=== PATIENT | male | born 1950 | race Caucasian/White ===

== ENCOUNTER 2018-02-06 09:05 | Inpatient (IN) | payer MEDICARE, OTHER ==
[2018-01-26 09:18] LABS: ABSOLUTE BASOPHILS 0.1 thou/uL (0.0-0.2); ABSOLUTE EOSINOPHILS 0.5 thou/uL (0.0-0.7); ABSOLUTE LYMPHOCYTES 1.8 thou/uL (0.8-5.3); ABSOLUTE MONOCYTES 0.5 thou/uL (0.0-1.2); BASOPHILS 1.1 %; EOSINOPHILS 6.3 %; HEMATOCRIT 46.4 % (42.0-52.0); HEMOGLOBIN 15.9 gm/dL (14.0-18.0); LYMPHOCYTES 23.2 %; MCH 29.8 pg (26.0-34.0); MCHC 34.3 g/dL (28.0-37.0); MCV 86.7 fL (80.0-100.0); NUCLEATED RBCS 0 /100WBC; PLATELET COUNT* 209 thou/uL (150-400); POLYS 63.4 %; RBC 5.35 mil/uL (4.50-6.00); RDW-CV 14.1 % (10.5-14.5)
[2018-01-26 09:46] LABS: APTT 28.9 Seconds (25.0-31.3); PROTIME 9.8 Seconds (9.20-11.50)
[2018-01-26 10:21] LABS: ESR (SEDRATE) 15 mm/hr (0-20)
[2018-01-26 11:07] LABS: ALBUMIN 3.7 g/dL (3.4-5.0); CALCIUM 8.5 mg/dL (8.5-10.1); CREATININE 0.9 mg/dL (0.6-1.3); TOTAL BILIRUBIN 0.4 mg/dL (<0.1-1.0); TOTAL PROTEIN 7.5 g/dL (6.4-8.2)
--- NOTE | 2018-01-26 17:04 | EKG ---
[place] [address] ELECTROCARDIOGRAM REPORT Name: TATIANA TEE Jeovany Room: [facility]#: [id number] Admission: Attend Phys: Ar Marcelo Discharge: Date of : 54 Report #: [id number] THIS REPORT FOR: //name// [facility] Test Date: 2018-01-26 Test Time: 09:23:50 Pat Name: TATIANA TEE Department: Room: Gender: Male [employer]: : 1950 Requested By: Marco A Kong Order Number: [id number] Reading MD: Denny Claudio Measurements Intervals [place] Rate: P: [place]: QRS: QRSD: T: QT: QTc: Interpretive Statements Sinus bradycardia Completely right bundle-branch block 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
[~2018-02-06] VITALS: Ht 175.3 cm; Wt 90.7 kg
[2018-02-06 10:30] VITALS: BP 142/86
[2018-02-06] MEDS ORDERED: [UNRECOGNIZED DRUG - OTHER] PO (10:34)
[2018-02-06] MEDS ORDERED: BEET PO (10:35)
[2018-02-06] MEDS ORDERED: MULTIVITAMINS1 EAC7 PO (10:36)
[2018-02-06 14:35] VITALS: BP 115/79
[2018-02-06 14:56] VITALS: BP 115/79
[2018-02-06 15:45] VITALS: BP 124/77
[2018-02-06 22:00] VITALS: BP 131/91
[2018-02-06 23:45] VITALS: BP 125/76
[2018-02-07 04:00] VITALS: BP 131/66
[2018-02-07 04:45] LABS: HEMATOCRIT 37.5 % (42.0-52.0); HEMOGLOBIN 12.5 gm/dL (14.0-18.0)
[2018-02-07 08:58] VITALS: BP 144/83
[2018-02-07 15:21] VITALS: BP 144/83
[2018-02-07 16:24] VITALS: BP 139/88
[2018-02-07] MEDS ORDERED: NEURONTIN 300300 M1 PO (16:41)
[2018-02-07] MEDS ORDERED: ELIQUIS2.5 MG PO (16:43)
[2018-02-07] MEDS ORDERED: OXYCODONE HCL 55 MG PO (16:44)
[2018-02-07 16:57] VITALS: BP 139/88
[2018-02-07] MEDS ORDERED: ASPIRIN325 PO (17:50)
--- NOTE | 2018-02-10 07:16 | OP ---
[address] [address] OPERATIVE REPORT Name: TATIANA TEE Room: [address]#: [id number] Admission: 02/06/18 Attend Phys: Ar Marcelo Discharge: 02/07/18 Date of : 54 Report #: [id number] THIS REPORT FOR: //name// CC: Physician staff Marco A Mistry DATE OF SERVICE: 02/06/2018 PREOPERATIVE DIAGNOSIS: Advanced degenerative joint disease of the right knee. POSTOPERATIVE DIAGNOSIS: Advanced degenerative joint disease of the right knee. PROCEDURE: Right total knee arthroplasty. SURGEON: Marco A Kong DO [employer]ENE [employer] L[employer]ING DESIGN LECTURER: Adolfo Brennan DO. ANESTHESIA: General LMA with anterior adductor block. IMPLANTS: A [employer]omet Vanguard total knee system with a size 67.5 cruciate retained right femoral component, a 75 mm fixed cruciate tibial plate, a 10 mm anterior stabilized tibial bearing, one bag of Palacos cement, 1 gram of vancomycin topical, 1 gram of TXA IV preop. ESTIMATED BLOOD LOSS: 225 mL. ANTIBIOTICS: Ancef 2 grams IVPB 30 minutes prior to incision. SPECIMENS: None. INDICATIONS: The patient is a 67-year-old male who has had longstanding severe degenerative joint disease with intractable pain to the right knee. Pain is both medial and lateral to the knee. He has decreased range of motion secondary to discomfort. He walks with antalgic gait. X-rays show [id number] apposition of the medial joint line as well as osteochondral defects lateral femoral condyle. He is here today for elective surgical intervention. Risks and complications were discussed in detail with the patient and family who was present. These include but are not limited to neurovascular damage, infection, fracture, need for further surgery, failure of the prosthesis, recall of prosthesis, allergy developed at the prosthesis, continued pain, decreased range of motion, need for further surgery, deep vein thrombosis, pulmonary emboli, myocardial infarction, rhabdomyolysis, blood loss, blood transfusions and even . Signed informed consent has been attached to chart, may refer to and his knee is marked preoperatively [place] [address] OPERATIVE REPORT Name: TATIANA TEE Room: [address]#: [id number] Admission: 02/06/18 Attend Phys: Ar Marcelo Discharge: 02/07/18 Date of : 54 Report #: [id number] DESCRIPTION OF PROCEDURE: The patient was taken to the operating suite and placed on the operating table in supine position. Following general LMA anesthetic, the right leg was designated appropriate surgical site. The tourniquet was applied to the proximal aspect of the right thigh and was utilized just during cementing for 17 minutes or less. A midline incision was made after timeout technique was verified appropriate surgical site, procedure, concerns and allergies. Incision was carried through skin and subcutaneous tissue down to the extensor mechanism. A median parapatellar incision was then performed. The knee was everted to 120 degrees. All osteophytes removed from tibia and the femur. The distal femur was then drilled. The intramedullary guide was placed with the cutting block in place. Intramedullary guide was set at 12 mm from the most distal aspect of the femur due to extension lag of roughly 4 degrees preop and was also set at 4 degrees posterior slope and 5 degrees valgus. The distal femur cutting block was pinned into place. Intramedullary rell was removed. The distal femur was resected. Attention was then turned to the tibia with the external tibial guide aligned in all planes, pinned into place at 8 mm from the highest point on the tibia, proximal tibia was resected. The bony wafer was removed as well as all meniscal structures. The knee was placed in full extension. A 10 mm extension block was then placed in the knee in order to determine if adequate resection was performed and it was. Therefore, all pins were removed. The femur was then measured anterior to posterior, the appropriate size 67.5 guide was then impacted firmly in place with three 3-degree external rotation. Anterior and posterior condylar cuts were made followed by anterior and posterior chamfer cuts. The cutting guide was removed. All bony wafers were removed. Attention turned back to the tibia. The tibia was measured. The trial tibial tray was then inserted and aligned in all planes, pinned into place. A trial femoral component was inserted. A trial reduction was performed. The knee was placed through full range of motion, 0-125 almost 135 degrees. Excellent stability throughout the entire arc of motion especially with regard to the anterior drawer and posterior drawers as well as medial and lateral collateral ligaments. The cruciate ligament was removed both anterior and posterior. The patella was inspected. There was no osteochondral defected patella, therefore it was denervated with the electrocautery and left tlingit & haida. It tracks anatomically. The femur was then drilled with the femoral prep drill for the final pegs. The tibia was then prepared after removing the femur with the large tibial reamer followed by the cruciform punch. All trial components were removed. The cement drill was utilized on the tibia for better interdigitation of the cement. The posterior condyles of the femur were trimmed with a rongeur. All osteophytes were then removed. The knee was very well balanced in flexion and extension. One bag of Palacos cement was mixed on the back table while pulsatile lavage was utilized throughout the knee and then the knee was thoroughly dried. Palacos was placed on the final components. It was then placed on the tibia, rubbed into the interstices of the bone under pressurization. The tibia was impacted firmly into place. All excess cement was removed sharply. [place] [address] OPERATIVE REPORT Name: HAIMATTIANA Troy Jeovany Room: [address]#: [id number] Admission: 02/06/18 Attend Phys: Ar Marcelo Discharge: 02/07/18 Date of : 54 Report #: [id number] femur, placing some cement into the interstices of the bone and then impacting the femoral component with cement on the component. All excess cement was removed sharply. Trial reduction was then performed with a 10 and a 12 mm spacer. The 10 mm spacer gave best range of motion, best fit and best stability throughout the entire arc of motion. The final component was then obtained. Copious irrigation carried out throughout the incision. The posterior capsule of the knee was injected with the anesthetic solution. The final component was inserted and locked into place with a locking bar. The final range of motion was 0-135 degrees with excellent stability throughout. Tourniquet was deflated after cement had hardened. Hemostasis was achieved with the use of electrocautery, direct pressure. The knee was then closed using a #1 Vicryl in [id number] fashion sutured to the quadriceps and extensor mechanism. This was then reinforced with a running #1 Quill suture. The skin was reapproximated with 2-0 Monocryl subcutaneous sutures followed by 3-0 Stratafix subcuticular suture. Skin was then reinforced with Dermabond glue. A Mepilex dressing was applied. The knee was then placed with a thigh high KEYON hose. The patient was taken to recovery in stable condition. No complications encountered. The final instrument counts, sponge counts correct x 2. Estimated blood loss 225 mL. No complication encountered. <ELECTRONICALLY SIGNED> By: Win Simpson DO 02/10/18 0716 [id number] A Kong DO /mariana
== END 2018-02-07 19:40 | disposition home or self-care (01) | DRG 470 ==
LOC: M.SUR 09:05 → M.TBA 13:14 → M.ORTHSURG 13:14 → M.SUR 13:47 → M.ORTHSURG 14:00
PROVIDERS: Orthopaedic Surgery; ADMIT Internal Medicine
PROC: 0SRC0J9 Replacement of Right Knee Joint with Synthetic Substitute, Cemented, Open Approach (ICD-10-PCS; principal; 2018-02-06)
DX: M17.11 Unilateral primary osteoarthritis, right knee (principal); F17.210 Nicotine dependence, cigarettes, uncomplicated; Z88.5 Allergy status to narcotic agent